=== PATIENT | male | born 1990 | race Caucasian/White ===

== ENCOUNTER 2024-03-17 15:56 | Outpatient (CLI) | payer OTHER, SELFPAY ==
--- NOTE | 2024-03-17 16:00 | CRLHL7_ITS ---
For Patients: As a result of the Cures Act, medical imaging exams and procedure reports are released immediately into your electronic medical record. You may view this report before your referring provider. If you have questions, please contact your health care provider. INDICATION: Neck pain. FINDINGS: Four views of the cervical spine with oblique projections are submitted. No comparison. The overall stature and alignment of the cervical spine is within normal limits. The prevertebral soft tissues, dens and lateral masses are within normal limits. Intervertebral disc space height appears within normal limits. Grossly the visualized cervical neural foramina appear patent. IMPRESSION: No radiographic evidence of acute osseous injury. Dictated by Hans Garza MD @ 03/17/2024 8:29:18 PM (Electronically Signed)
== END 2024-03-17 15:57 | disposition home or self-care (01) ==
LOC: RAD 16:01
PROVIDERS: Visit Provider Chiropractor
DX: M54.2 Cervicalgia (principal)
CPT/HCPCS: 72050